=== PATIENT | female | born 1970 | race Caucasian/White ===

== ENCOUNTER 2024-03-05 13:33 | Outpatient (AMB) | payer MEDICAID, SELFPAY ==
[2024-03-05 13:53] VITALS: BP 118/83; PULSE 74; RESP 19; TEMP 36; O2SAT 95; BMI 31.1
--- NOTE | 2024-03-05 13:53 | PD.ORTHCLVIS ---
Vital signs 03/05/24 13:53 Height 1.57 m Height Method Stated Weight 77.337 kg Weight Measurement Method Standing Scale BMI 31.1 BP 118/83 Blood Pressure Source Automatic Cuff Blood Pressure Location Left Upper Arm Position Sitting Respiration 19 Pulse 74 Pulse Source Monitor Temp 96.8 F Temp Source Temporal Artery Scan Pulse Oximetry (%) 95 Oxygen Delivery Method Room Air Med/Allergies Allergies & Medications Allergies No Known Allergies Allergy (Verified 03/05/24 13:54) Medication Reconciliation atorvastatin 10 mg tablet 10 mg PO QDAY 03/05/24 [History Confirmed 03/05/24] lisinopril 10 mg tablet 10 mg PO QDAY 03/05/24 [History Confirmed 03/05/24] loratadine 10 mg tablet (Allergy Relief (loratadine)) 10 mg PO QDAY 03/05/24 [History Confirmed 03/05/24] metformin 500 mg tablet 500 mg PO QDAY 03/05/24 [History Confirmed 03/05/24] semaglutide 0.25 mg or 0.5 mg (2 mg/3 mL) subcutaneous pen injector (Ozempic) 0.25 mg subcut QWEEK 03/05/24 [History Confirmed 03/05/24] Exam Exam Patient is in no acute distress and is cooperative with the examination today. Breathing is nonlabored. In no respiratory distress. Bilateral extremities were evaluated and demonstrates sensation intact to light touch. Palpable pedal pulses are present. No significant edema is present. Bilateral hips were examined. The patient has no pain with log roll of the hips. Internal rotation to 30 degrees and external rotation to 30 degrees is painless. Negative FADIR. The left knee was examined. The left knee is in varus alignment. Range of motion from 0-115 degrees. Knee is stable to varus and valgus as well as AP translation with <5mm. Patient has a negative McMurrays. There is no pain with patellofemoral compression and no crepitus noted. The knee is tender to palpation medially. The right knee was also examined. The right knee is in varus alignment. Range of motion from 0-120 degrees. Knee is stable to varus and valgus as well as AP translation with <5mm. Patient has a negative McMurrays. There is no pain with patellofemoral compression and no crepitus noted. The knee is tender to palpation medially. X-rays demonstrate bilateral knee arthritis and joint space narrowing medially. It is of mild severity Assessment and Plan Problem List (1) Degenerative arthritis of knee, bilateral: Status: Acute Plan: Patient is a 53-year-old female with bilateral knee pain and bilateral knee arthritis. We discussed nonoperative and operative options. Her x-rays not demonstrating significant arthritis. I would thus recommend continued anti-inflammatories and bilateral knee injections. We will get authorization for bilateral knee injections at the next visit Office Procedures GNS Level of Care Nursing/Assessment Patient Status: Initial/New Patient Nursing Assessment/Reassesment: Medication Reconciliation, Update PMH in EMR and Vital Signs Coordination of Care: Complex Care and Chronic Disease 1-5, Education Complex Pt/Fam, Consent,records obtained, informed consent, 1 Ins Authorization, Results/Orders obtained and Staff clarify orders New Patient Charge New Patient Point Assignment: [id number] New Patient Point Charge: VOCATIONAL SERVICES SPECIALIST Level 3 (6079-3181) MA Intake Visit Data Collection New Patient or Established: Established Patient (seen at [facility] within 3 years) Reason for Visit:: BL OA OF KNEE Seen by Clinical Staff ONLY (RN/MA): No Vehicle Assembly Inspector Required: No PCP or OBGYN visit in last 3 months: Yes Hx Now: No Do You Feel Safe at Home: Yes Authorities Contacted: N/A Questionairres Past Medical History Past Medical History Have you ever been diagnosed with any of the following: Respiratory Problems Smoking: No Smoking Cessation Counseling: No Smoking Exposure: No Endocrine Problems Diabetes Mellitus Type 1: Yes Subjective Visit Visit for: new patient and knee Immunization / Flu Flu Vaccine in the Last 12 Months: Yes Flu Vaccine Exclusion Criteria: Already Received History of Present Illness Chief complaint: bilateral knee pain Patient is a 53-year-old female who I previously saw in my prior office. She has bilateral knee pain has been ongoing for a while. She has degenerative meniscal tear and she has been doing well with nonoperative treatment. She has had prior injections and lasted for quite a while. I saw her more than a year ago. She is currently in physical therapy. Pain Pain level (0-10): 7 Pain duration: COMES AND GOES Pain location: inside (medial) Pain quality: sharp Pain timing: night and stairs Associated signs & symptoms: stiffness (RIGHT) Ambulatory data Ambulatory device: none Treatments Improvement with previous injections: Yes Improvement with PT: Yes Improvement with NSAIDS: no Review of Systems Review of Systems: All systems negative unless otherwise noted in HPI.
== END 2024-03-05 14:15 | disposition home or self-care (01) ==
PROVIDERS: PCP Nurse Practitioner; Referring Provider Nurse Practitioner; Supervising Provider Orthopaedic Surgery Adult Reconstructive Orthopaedic Surgery; Visit Provider Orthopaedic Surgery Adult Reconstructive Orthopaedic Surgery
DX: M17.0 Bilateral primary osteoarthritis of knee (principal); M25.562 Pain in left knee; M25.561 Pain in right knee; E10.9 Type 1 diabetes mellitus without complications
CPT/HCPCS: 99203; G0463

== ENCOUNTER 2024-03-19 14:49 | Outpatient (AMB) | payer MEDICAID, SELFPAY ==
--- NOTE | 2024-03-19 14:57 | ORTHONT_ITS ---
Vital signs 03/19/24 14:59 Height 1.57 m Height Method Stated Weight 77.763 kg Weight Measurement Method Standing Scale BMI 31.5 BP 117/81 Blood Pressure Source Automatic Cuff Blood Pressure Location Left Upper Arm Position Sitting Respiration 19 Pulse 85 Pulse Source Monitor Temp 98.0 F Temp Source Temporal Artery Scan Pulse Oximetry (%) 96 Oxygen Delivery Method Room Air Med/Allergies Allergies & Medications Allergies No Known Allergies Allergy (Verified 03/19/24 15:00) Medication Reconciliation atorvastatin 10 mg tablet 10 mg PO QDAY 03/05/24 [History Confirmed 03/19/24] lisinopril 10 mg tablet 10 mg PO QDAY 03/05/24 [History Confirmed 03/19/24] loratadine 10 mg tablet (Allergy Relief (loratadine)) 10 mg PO QDAY 03/05/24 [History Confirmed 03/19/24] metformin 500 mg tablet 500 mg PO QDAY 03/05/24 [History Confirmed 03/19/24] semaglutide 0.25 mg or 0.5 mg (2 mg/3 mL) subcutaneous pen injector (Ozempic) 0.25 mg subcut QWEEK 03/05/24 [History Confirmed 03/19/24] Exam Exam Patient is in no acute distress and is cooperative with the examination today. Breathing is nonlabored. In no respiratory distress. Bilateral extremities were evaluated and demonstrates sensation intact to light touch. Palpable pedal pulses are present. No significant edema is present. Bilateral hips were examined. The patient has no pain with log roll of the hips. Internal rotation to 30 degrees and external rotation to 30 degrees is painless. Negative FADIR. The left knee was examined. The left knee is in varus alignment. Range of motion from 0-115 degrees. Knee is stable to varus and valgus as well as AP translation with <5mm. Patient has a negative McMurrays. There is no pain with patellofemoral compression and no crepitus noted. The knee is tender to palpation medially. The right knee was also examined. The right knee is in varus alignment. Range of motion from 0-120 degrees. Knee is stable to varus and valgus as well as AP translation with <5mm. Patient has a negative McMurrays. There is no pain with patellofemoral compression and no crepitus noted. The knee is tender to palpation medially. X-rays demonstrate bilateral knee arthritis and joint space narrowing medially. It is of mild severity Assessment and Plan Problem List (1) Degenerative arthritis of knee, bilateral: Status: Acute Plan: Patient is a 53-year-old female with bilateral knee pain and bilateral knee arthritis. We discussed nonoperative and operative options. Her x-rays are not demonstrating significant arthritis. I would thus recommend continued anti- inflammatories and bilateral knee injections. Plan Recommend knee cortisone injections as patient would like to proceed with conservative treatment at this time. The risks and benefits of the procedure were reviewed with the patient and patient gave verbal consent to continue with the procedure. Procedure: performed by Dr. Iraheta Using sterile technique the Bilateral knees were thoroughly prepped with alcohol, and approximately 1 cc of Kenalog 40 mg/mL and 4 cc of 1% lidocaine was injected into each knee without resistance into the medial tibial femoral joint space. The patient tolerated the procedure. Office Procedures GNS Level of Care Nursing/Assessment Patient Status: Established Patient Nursing Assessment/Reassesment: Medication Reconciliation, Update PMH in EMR and Vital Signs Coordination of Care: Complex Care and Chronic Disease 1-5, Education Complex Pt/Fam, Consent,records obtained, informed consent, Results/Orders obtained and Staff clarify orders Established Patient Charge Established Patient Point Assignment: 95 Established Patient Point Charge: EP Level 3 (80-115) MA Intake Visit Data Collection New Patient or Established: Established Patient (seen at [facility] within 3 years) Reason for Visit:: BILATERAL KNEE INJECTION Seen by Clinical Staff ONLY (RN/MA): No Special Education Director Required: No PCP or OBGYN visit in last 3 months: Yes Hx Now: No Do You Feel Safe at Home: Yes Authorities Contacted: N/A Questionairres Past Medical History Past Medical History Have you ever been diagnosed with any of the following: Respiratory Problems Smoking: No Smoking Cessation Counseling: No Smoking Exposure: No Endocrine Problems Diabetes Mellitus Type 1: Yes Subjective Visit Visit for: follow up visit, knee (BILATERAL) and injections Immunization / Flu Flu Vaccine in the Last 12 Months: No Flu Vaccine Exclusion Criteria: No Exclusion Criteria History of Present Illness Chief complaint: bilateral knee pain Patient is a 53-year-old female who I previously saw in my prior office. She has bilateral knee pain has been ongoing for a while. She has degenerative meniscal tear and she has been doing well with nonoperative treatment. She has had prior injections and they lasted for quite a while. I saw her more than a year ago. She is currently in physical therapy. Pain Pain level (0-10): 5 Pain duration: CONSTANT Pain location: inside (medial) Pain quality: sharp, dull and aching Pain timing: night, increases with activity and stairs Associated signs & symptoms: stiffness (RIGHT) Ambulatory data Ambulatory device: none Treatments Improvement with previous injections: No Improvement with PT: No Improvement with NSAIDS: no Review of Systems Review of Systems: All systems negative unless otherwise noted in HPI.
[2024-03-19 14:59] VITALS: BP 117/81; PULSE 85; RESP 19; TEMP 36.7; O2SAT 96; BMI 31.5
== END 2024-03-19 15:34 | disposition home or self-care (01) ==
PROVIDERS: PCP Nurse Practitioner; Referring Provider Nurse Practitioner; Supervising Provider Orthopaedic Surgery Adult Reconstructive Orthopaedic Surgery; Visit Provider Orthopaedic Surgery Adult Reconstructive Orthopaedic Surgery
DX: M17.0 Bilateral primary osteoarthritis of knee (principal); M25.562 Pain in left knee; M25.561 Pain in right knee; E10.9 Type 1 diabetes mellitus without complications
CPT/HCPCS: 20610; 99213; J3301; J3490; G0463

== ENCOUNTER 2024-07-16 15:16 | Outpatient (AMB) | payer MEDICAID, SELFPAY ==
--- NOTE | 2024-07-16 15:27 | ORTHONT_ITS ---
Med/Allergies Allergies & Medications Allergies No Known Allergies Allergy (Verified 03/19/24 15:00) Exam Exam Patient is in no acute distress and is cooperative with the examination today. Breathing is nonlabored. In no respiratory distress. Bilateral extremities were evaluated and demonstrates sensation intact to light touch. Palpable pedal pulses are present. No significant edema is present. Bilateral hips were examined. The patient has no pain with log roll of the hips. Internal rotation to 30 degrees and external rotation to 30 degrees is painless. Negative FADIR. The left knee was examined. The left knee is in varus alignment. Range of motion from 0-115 degrees. Knee is stable to varus and valgus as well as AP translation with <5mm. Patient has a negative McMurrays. There is no pain with patellofemoral compression and no crepitus noted. The knee is tender to palpation medially. The right knee was also examined. The right knee is in varus alignment. Range of motion from 0-120 degrees. Knee is stable to varus and valgus as well as AP t ranslation with <5mm. Patient has a negative McMurrays. There is no pain with patellofemoral compression and no crepitus noted. The knee is tender to palpation medially. X-rays demonstrate bilateral knee arthritis and joint space narrowing medially. It is of mild severity Assessment and Plan Problem List (1) Degenerative arthritis of knee, bilateral: Status: Acute Plan: Patient is a 53-year-old female with bilateral knee pain and bilateral knee arthritis. We discussed nonoperative and operative options. Her x-rays are not demonstrating significant arthritis. She would like a right knee injections today Plan Recommend knee cortisone injection as patient would like to proceed with conservative treatment at this time. The risks and benefits of the procedure were reviewed with the patient and patient gave verbal consent to continue with the procedure. Procedure: performed by Dr. Iraheta Using sterile technique the Right knee was thoroughly prepped with alcohol, and approximately 1 cc of Kenalog 40 mg/mL and 4 cc of 1% lidocaine was injected without resistance into the medial tibial femoral joint space. The patient tolerated the procedure. Questionairres Past Medical History Past Medical History Have you ever been diagnosed with any of the following: Respiratory Problems Smoking: No Smoking Cessation Counseling: No Smoking Exposure: No Endocrine Problems Diabetes Mellitus Type 1: Yes Subjective Visit Visit for: follow up visit, knee (BILATERAL) and injections Immunization / Flu Flu Vaccine in the Last 12 Months: No Flu Vaccine Exclusion Criteria: No Exclusion Criteria History of Present Illness Chief complaint: bilateral knee pain Patient is a 53-year-old female who I previously saw in my prior office. She has bilateral knee pain has been ongoing for a while. She has degenerative meniscal tear and she has been doing well with nonoperative treatment. She has had prior injections and they lasted for quite a while. She would like a new injection today Pain Pain level (0-10): 5 Pain duration: CONSTANT Pain location: inside (medial) Pain quality: sharp, dull and aching Pain timing: night, increases with activity and stairs Associated signs & symptoms: stiffness (RIGHT) Ambulatory data Ambulatory device: none Treatments Improvement with previous injections: No Improvement with PT: No Improvement with NSAIDS: no Review of Systems Review of Systems: All systems negative unless otherwise noted in HPI.
[2024-07-16 15:31] VITALS: BP 118/78; PULSE 78; RESP 18; TEMP 36.6
[2024-07-16 15:47] VITALS: BP 118/78; PULSE 78; RESP 18; TEMP 36.6
--- NOTE | 2024-07-16 15:47 | PD.ORTHCLVIS ---
Vital signs 07/16/24 15:31 07/16/24 15:47 Height 1.57 m Height Method Stated Weight 78.29 kg Weight Measurement Method Standing Scale BP 118/78 118/78 Blood Pressure Source Automatic Cuff Blood Pressure Location Left Upper Arm Position Sitting Respiration 18 18 Pulse 78 78 Pulse Source Monitor Temp 97.8 F 97.8 F Temp Source Temporal Artery Scan Med/Allergies Allergies & Medications Allergies No Known Allergies Allergy (Verified 07/16/24 15:49) Medication Reconciliation atorvastatin 10 mg tablet 10 mg PO QDAY 03/05/24 [History Confirmed 07/16/24] lisinopril 10 mg tablet 10 mg PO QDAY 03/05/24 [History Confirmed 07/16/24] loratadine 10 mg tablet (Allergy Relief (loratadine)) 10 mg PO QDAY 03/05/24 [History Confirmed 07/16/24] metformin 500 mg tablet 500 mg PO QDAY 03/05/24 [History Confirmed 07/16/24] semaglutide 0.25 mg or 0.5 mg (2 mg/3 mL) subcutaneous pen injector (Ozempic) 0.25 mg subcut QWEEK 03/05/24 [History Confirmed 07/16/24] Assessment and Plan Problem List (1) Degenerative arthritis of knee, bilateral: Status: Acute Office Procedures GNS Level of Care Nursing/Assessment Patient Status: Established Patient Nursing Assessment/Reassesment: Medication Reconciliation, Update PMH in EMR and Vital Signs Coordination of Care: Complex Care and Chronic Disease 1-5, Education Complex Pt/Fam, Consent,records obtained, informed consent, Results/Orders obtained and Staff clarify orders Established Patient Charge Established Patient Point Assignment: 95 Established Patient Point Charge: EP Level 3 (80-115) Surgical Proc/IM SQ injection Major Surgical Procedure: Yes (BILATERAL KNEE INJECTION) Medication Given Medication Given Medication Given: Yes Documented Dose Given: 8 Route: Infiitration Medication Given Medication Given Medication Given: Yes Documented Dose Given: 4 Route: Infiitration Office Meds Xylocaine 10 mg/mL (1 %) injection solution Performing Provider: Brett Iraheta MD Performing Location: [facility] Administered by: Brett Iraheta MD on 07/16/24 15:47 Dose Route Admin Location Dispensed Lot Number Expiration Date [facility] [employer] Super[employer] 40 mL Infiltration 40 mL [id number] 11/03/27 76512-290-15 [employer] triamcinolone acetonide 40 mg/mL suspension for injection Performing Provider: Brett Iraheta MD Performing Location: [facility] Administered by: Brett Iraheta MD on 07/16/24 15:47 Dose Route Admin Location Dispensed Lot Number Expiration Date [employer] 80 mg intra-articular 2 mL [id number] 03/04/26 3817-6893-14 [employer] Questionairres Past Medical History Past Medical History Have you ever been diagnosed with any of the following: Respiratory Problems Smoking: No Smoking Cessation Counseling: No Smoking Exposure: No Endocrine Problems Diabetes Mellitus Type 1: Yes Subjective Immunization / Flu Flu Vaccine in the Last 12 Months: Yes Flu Vaccine Exclusion Criteria: Allergy to Eggs Review of Systems Review of Systems: All systems negative unless otherwise noted in HPI.
== END 2024-07-16 15:39 | disposition home or self-care (01) ==
PROVIDERS: PCP Nurse Practitioner; Referring Provider Nurse Practitioner; Supervising Provider Orthopaedic Surgery Adult Reconstructive Orthopaedic Surgery; Visit Provider Orthopaedic Surgery Adult Reconstructive Orthopaedic Surgery
DX: M17.0 Bilateral primary osteoarthritis of knee (principal)
CPT/HCPCS: 20610; 99213; J3301; J3490; G0463

== ENCOUNTER 2024-10-17 14:18 | Outpatient (AMB) | payer MEDICAID, SELFPAY ==
[2024-10-17 14:35] VITALS: BP 116/72; PULSE 89; RESP 18; TEMP 36.7; O2SAT 96; BMI 34.6
--- NOTE | 2024-10-17 14:35 | ORTHONT_ITS ---
Vital signs 10/17/24 14:35 Height 1.57 m Height Method Stated Weight 85.389 kg Weight Measurement Method Standing Scale BMI 34.6 BP 116/72 Blood Pressure Source Automatic Cuff Blood Pressure Location Left Upper Arm Position Sitting Respiration 18 Pulse 89 Pulse Source Monitor Temp 98.1 F Temp Source Temporal Artery Scan Pulse Oximetry (%) 96 Oxygen Delivery Method Room Air Med/Allergies Allergies & Medications Allergies No Known Allergies Allergy (Verified 10/17/24 14:38) Medication Reconciliation atorvastatin 10 mg tablet 10 mg PO QDAY 03/05/24 [History Confirmed 10/17/24] lisinopril 10 mg tablet 10 mg PO QDAY 03/05/24 [History Confirmed 10/17/24] loratadine 10 mg tablet (Allergy Relief (loratadine)) 10 mg PO QDAY 03/05/24 [History Confirmed 10/17/24] metformin 500 mg tablet 500 mg PO QDAY 03/05/24 [History Confirmed 10/17/24] semaglutide 0.25 mg or 0.5 mg (2 mg/3 mL) subcutaneous pen injector (Ozempic) 0.25 mg subcut QWEEK 03/05/24 [History Confirmed 10/17/24] Exam Exam Patient is in no acute distress and is cooperative with the examination today. Breathing is nonlabored. In no respiratory distress. Bilateral extremities were evaluated and demonstrates sensation intact to light touch. Palpable pedal pulses are present. No significant edema is present. Bilateral hips were examined. The patient has no pain with log roll of the hips. Internal rotation to 30 degrees and external rotation to 30 degrees is painless. Negative FADIR. The left knee was examined. The left knee is in varus alignment. Range of motion from 0-115 degrees. Knee is stable to varus and valgus as well as AP translation with <5mm. Patient has a negative McMurrays. There is no pain with patellofemoral compression and no crepitus noted. The knee is tender to palpation medially. The right knee was also examined. The right knee is in varus alignment. Range of motion from 0-120 degrees. Knee is stable to varus and valgus as well as AP translation with <5mm. Patient has a negative McMurrays. There is no pain with patellofemoral compression and no crepitus noted. The knee is tender to palpation medially. X-rays demonstrate bilateral knee arthritis and joint space narrowing medially. It is of mild severity Assessment and Plan Problem List (1) Degenerative arthritis of knee, bilateral: Status: Acute Plan: Patient is a 53-year-old female with bilateral knee pain and bilateral knee arthritis. We discussed nonoperative and operative options. Her x-rays are not demonstrating significant arthritis. She would like a right knee injections today Plan Recommend knee cortisone injection as patient would like to proceed with conservative treatment at this time. The risks and benefits of the procedure were reviewed with the patient and patient gave verbal consent to continue with the procedure. Procedure: performed by Dr. Iraheta Using sterile technique the left knee was thoroughly prepped with alcohol, and approximately 1 cc of Depo-Medrol 80mg/mL and 4 cc of 0.2% ropivacaine was injected without resistance into the medial tibial femoral joint space. The patient tolerated the procedure. Recommend knee cortisone injection as patient would like to proceed with conservative treatment at this time. The risks and benefits of the procedure were reviewed with the patient and patient gave verbal consent to continue with the procedure. Procedure: performed by Dr. Iraheta Using sterile technique the Right knee was thoroughly prepped with alcohol, and approximately 1 cc of Depo-Medrol 80mg/mL and 4 cc of 0.2% ropivacaine was injected without resistance into the medial tibial femoral joint space. The patient tolerated the procedure. Office Procedures GNS Level of Care Nursing/Assessment Patient Status: Established Patient Nursing Assessment/Reassesment: Medication Reconciliation, Update PMH in EMR and Vital Signs Coordination of Care: Complex Care and Chronic Disease 1-5, Education Complex Pt/Fam, Consent,records obtained, informed consent, Results/Orders obtained and Staff clarify orders Established Patient Charge Established Patient Point Assignment: 95 Established Patient Point Charge: EP Level 3 (80-115) Surgical Proc/IM SQ injection Major Surgical Procedure: Yes (BILATERAL KNEE INJECTION ) Medication Given Medication Given Medication Given: Yes Documented Dose Given: 1 Route: Infiitration Medication Given Medication Given Medication Given: Yes Documented Dose Given: 1 Route: Infiitration Medication Given Medication Given Medication Given: Yes Documented Dose Given: 4 Route: Infiitration Medication Given Medication Given Medication Given: Yes Documented Dose Given: 4 Route: Infiitration Office Meds methylprednisolone acetate 80 mg/mL suspension for injection Performing Provider: Brett Iraheta MD Performing Location: [facility] Administered by: Brett Iraheta MD on 10/17/24 14:55 Dose Route Admin Location Dispensed Lot Number Expiration Date ND [employer]ester 80 mg intra-articular 1 mL [id number] 08/02/26 [address]-7 [employer] methylprednisolone acetate 80 mg/mL suspension for injection Performing Provider: Brett Iraheta MD Performing Location: [facility] Administered by: Brett Iraheta MD on 10/17/24 14:55 Dose Route Admin Location Dispensed Lot Number Expiration Date ND Drum Tester 80 mg intra-articular 1 mL [id number] 08/02/26 [address]-4 [employer] ropivacaine (PF) 2 mg/mL (0.2 %) injection solution Performing Provider: Brett Iraheta MD Performing Location: [facility] Administered by: Brett Iraheta MD on 10/17/24 14:55 Dose Route Admin Location Dispensed Lot Number Expiration Date ND Drum Tester 20 mL Infiltration 20 mL [id number] 01/02/26 53159-750-65 [facility] ropivacaine (PF) 2 mg/mL (0.2 %) injection solution Performing Provider: Brett Iraheta MD Performing Location: [facility] Administered by: Brett Iraheta MD on 10/17/24 15:04 Dose Route Admin Location Dispensed Lot Number Expiration Date [facility] Drum Tester 20 mL Infiltration 20 mL [id number] 01/02/26 33193-659-66 [facility] [place] Intake Visit Data Collection New Patient or Established: Established Patient (seen at [facility] within 3 years) Reason for Visit:: 3MTH KNEE INJ F/U Seen by Clinical Staff ONLY (RN/MA): No PCP or OBGYN visit in last 3 months: Yes Hx Now: No Do You Feel Safe at Home: Yes Authorities Contacted: N/A Questionairres Past Medical History Past Medical History Have you ever been diagnosed with any of the following: Neurological Problems Cerebrovascular Accident (CVA): No Transient Ischemic Attacks (TIA): No Dementia: No Alzheimer's Disease: No Parkinson's Disease: No Brain Tumor: No Meningitis: No Seizures: No Epilepsy: No Multiple Sclerosis: No Cerebral Palsy: No Amyotrophic Lateral Sclerosis (ALS/Darlene Gehrig's): No Guillain-[place] Syndrome: No Spina Bifida: No Paralysis: No Peripheral Neuropathy: No Anaya's Palsy: No Subdural Hematoma: No Migraine: No Head Trauma: No Spinal Cord Injury: No Traumatic Brain Injury: No Cardiology Problems Myocardial Infarction: No Cardiac Arrhythmia: No Atrial Fibrillation: No Angina: No Heart Murmur: No Coronary Artery Disease: No Atherosclerotic Heart Disease: No Peripheral Vascular Disease: No Hypercholesterolemia: No Aneurysm: No Congestive Heart Failure: No Congenital Heart Disease: No Valvular Heart Disease: No Rheumatic Fever: No Cardiomyopathy: No Edema: No Pericarditis: No Cellulitis: No Deep Vein Thrombosis: No Hypertension: No Hypotension: No Varicose Veins: No Respiratory Problems Chronic Obstructive Pulmonary Disease (COPD): No Asthma: No Bronchitis: No Emphysema: No Pneumonia: No Pulmonary Fibrosis: No Tuberculosis: No Pulmonary Embolism: No Pulmonary Edema: No Sleep Apnea: No CPAP Dependent: No Respiratory Aspiration: No Dyspnea: No Orthopnea: No Hx Cough: No Cough: No Wheezing: No Chest Deformities: No Smoking: No Smoking Cessation Counseling: No Smoking Exposure: No Tobacco Use: No Clubbing: No Exposure to Respiratory Irritants: No Intubation: No Stomache/Intestinal Problems Liver Cancer: No Hepatitis: No Cirrhosis: No Pancreatic Cancer: No Pancreatitis: No Celiac Disease: No Gall Bladder Disease: No Gastrointestinal Bleed: No Esophageal Varices: No Gutierrez's Esophagus: No Colitis: No Ulcerative Colitis: No Diverticulitis: No Diverticulosis: No Ulcer: No Colorectal Cancer: No Irritable Bowel: No Crohn's Disease: No Obstructive Bowel: No Hiatal Hernia: No Hemorrhoids: No Gastroesophageal Reflux Disease: No Polyps: No Obesity: No Genital/Urinary Problems Chronic Kidney Disease: No Renal Disease: No Kidney Stones: No Polycystic Kidney Disease: No Neurogenic Bladder: No Inguinal Hernia: No Dialysis: No Reproductive Problems Breast Cancer: No Endometriosis: No Fibroids: No Genital Herpes: No Gonorrhea: No Pelvic Inflammatory Disease: No Polycystic Ovarian Syndrome: No Previous Pregnancies: No Syphilis: No Uterine Prolapse: No Musculoskeletal Problems Muscular Dystrophy: No Myasthenia Gravis: No Marfan's Syndrome: No Bone Cancer: No Arthritis: No Rheumatoid Arthritis: No Osteoporosis: No Degenerative Disk Disease: No Gout: No Scoliosis: No Carpal Tunnel Syndrome: No Fibromyalgia: No Fractures: No Degenerative Joint Disease: No Osteomyelitis: No Poliovirus: No Head,Eye,Nose,Throat Problems Cataracts: No Glaucoma: No Blind: No Retinal Detachment: No Macular Degeneration: No Chronic Ear Infections: No Deafness: No Eye Prosthesis: No Endocrine Problems Diabetes Mellitus Type 1: Yes Diabetes Mellitus Type 2: No Hypoglycemia: No [place]'s Syndrome: No [place]'s Disease: No Hyperthyroidism: No Hypothyroidism: No Thyroid Cancer: No Parathyroid Disease: No Pituitary Disease: No Systemic Lupus Erythematosus: No Syndrome of Inappropriate Antidiuretic Hormone: No Adrenal Disease: No Graves' Disease: No Blood Problems Anemia: No Leukemia: No Hemophilia: No Thalassemia: No Sickle Cell Disease: No Clotting Problems: No Psychologic Problems Schizophrenia: No Recreational Drug Use: No Bipolar Disorder: No Depression: No Anxiety: No Behavior Problems: No Self-Mutilation: No Attention Deficit Disorder: No Attention Deficit Hyperactivity Disorder: No Depression: No Post Traumatic Stress Disorder: No Eating Disorder: No Other Problems Hospitalization: No Autoimmune Disease: No Down Syndrome: No Autism: No Developmental Delay: No Cosmetic Surgery: No Shingles: No Falls: No Blood Transfusions: No Blood Transfusion Reaction: No Anesthesia Reactions: No Organ Transplant: No Chemotherapy: No Radiation Therapy: No Hyperbaric Therapy: No MRSA: No VRSA: No Vancomycin-Resistant Enterococci: No Human Immunodeficiency Virus (HIV): No Chicken Pox: No Measles: No Mumps: No Rubella ([place] Measles): No Pertussis: No Klebsiella Pneumoniae Carbapenemase Producing Bacteria: No Clostridium Difficile: No Hepatitis A: No Hepatitis B: No Hepatitis C: No Communicable Disease: No Cancer: No Cervical Cancer: No Lung Cancer: No Ovarian Cancer: No Surgical History Angioplasty: No Appendectomy: No Bariatric Surgery: No Breast Surgery: No Cancer Surgery: No Carotid Endarterectomy: No Cholecystectomy: No Colectomy: No Colostomy: No Coronary Artery Bypass Graft: No Valve Replacement: No Herniorrhaphy: No Total Hip Replacement: No Total Knee Replacement: No Hysterectomy: No Pacemaker: No Sinus Surgery: No Splenectomy: No TAHBSO-Total Abdominal Hysterectomy: No Thyroidectomy: No Ureter Stent: No Subjective Visit Visit for: follow up visit, knee and injections Immunization / Flu Flu Vaccine in the Last 12 Months: Yes Flu Vaccine Exclusion Criteria: Allergy to Eggs History of Present Illness Chief complaint: bilateral knee pain Patient is a 53-year-old female who I previously saw in my prior office. She has bilateral knee pain has been ongoing for a while. She has degenerative meniscal tear and she has been doing well with nonoperative treatment. She has had prior injections and they lasted for quite a while. She would like a new injection today Pain Pain level (0-10): 4 Pain duration: CONSTANT Pain location: anterior Pain quality: dull Pain timing: increases with activity Associated signs & symptoms: none Ambulatory data Ambulatory device: none Treatments Improvement with previous injections: No Improvement with PT: No Improvement with NSAIDS: no Review of Systems Review of Systems: All systems negative unless otherwise noted in HPI.
== END 2024-10-17 15:04 | disposition home or self-care (01) ==
LOC: HODSRG 14:18
PROVIDERS: PCP Nurse Practitioner; Referring Provider Nurse Practitioner; Supervising Provider Orthopaedic Surgery Adult Reconstructive Orthopaedic Surgery; Visit Provider Orthopaedic Surgery Adult Reconstructive Orthopaedic Surgery
DX: M17.0 Bilateral primary osteoarthritis of knee (principal); M25.562 Pain in left knee; M25.561 Pain in right knee; S83.209D Unspecified tear of unspecified meniscus, current injury, unspecified knee, subsequent encounter; E10.9 Type 1 diabetes mellitus without complications
CPT/HCPCS: 20610; 99213; J1010; J2795; G0463

== ENCOUNTER 2025-01-03 10:49 | Outpatient (AMB) | payer MEDICAID, SELFPAY ==
--- NOTE | 2025-01-03 11:09 | ORTHONT_ITS ---
Vital signs 01/03/25 11:15 Height 1.57 m Height Method Stated Weight 86.438 kg Weight Measurement Method Standing Scale BMI 35.0 BP 124/80 Blood Pressure Source Automatic Cuff Blood Pressure Location Left Upper Arm Position Sitting Respiration 18 Pulse 67 Pulse Source Monitor Temp 97.5 F Temp Source Temporal Artery Scan Pulse Oximetry (%) 96 Oxygen Delivery Method Room Air Med/Allergies Allergies & Medications Allergies No Known Allergies Allergy (Verified 01/03/25 11:15) Medication Reconciliation atorvastatin 10 mg tablet 10 mg PO QDAY 03/05/24 [History Confirmed 01/03/25] lisinopril 10 mg tablet 10 mg PO QDAY 03/05/24 [History Confirmed 01/03/25] loratadine 10 mg tablet (Allergy Relief (loratadine)) 10 mg PO QDAY 03/05/24 [History Confirmed 01/03/25] metformin 500 mg tablet 500 mg PO QDAY 03/05/24 [History Confirmed 01/03/25] semaglutide 0.25 mg or 0.5 mg (2 mg/3 mL) subcutaneous pen injector (Ozempic) 0.25 mg subcut QWEEK 03/05/24 [History Confirmed 01/03/25] Exam Exam Patient is in no acute distress and is cooperative with the examination today. Breathing is nonlabored. In no respiratory distress. Bilateral extremities were evaluated and demonstrates sensation intact to light touch. Palpable pedal pulses are present. No significant edema is present. Bilateral hips were examined. The patient has no pain with log roll of the hips. Internal rotation to 30 degrees and external rotation to 30 degrees is painless. Negative FADIR. The left knee was examined. The left knee is in varus alignment. Range of motion from 0-115 degrees. Knee is stable to varus and valgus as well as AP translation with <5mm. Patient has a negative McMurrays. There is no pain with patellofemoral compression and no crepitus noted. The knee is tender to palpation medially. The right knee was also examined. The right knee is in varus alignment. Range of motion from 0-120 degrees. Knee is stable to varus and valgus as well as AP translation with <5mm. Patient has a negative McMurrays. There is no pain with patellofemoral compression and no crepitus noted. The knee is tender to palpation medially. X-rays demonstrate bilateral knee arthritis and joint space narrowing medially. It is of mild severity Assessment and Plan Problem List (1) Degenerative arthritis of knee, bilateral: Status: Acute Plan: Patient is a 53-year-old female with bilateral knee pain and bilateral knee arthritis. We discussed nonoperative and operative options. Her x-rays are not demonstrating significant arthritis. She would like new knee injections today Plan Recommend knee cortisone injection as patient would like to proceed with conservative treatment at this time. The risks and benefits of the procedure were reviewed with the patient and patient gave verbal consent to continue with the procedure. Procedure: performed by Dr. Iraheta Using sterile technique the left knee was thoroughly prepped with alcohol, and approximately 1 cc of Depo-Medrol 80mg/mL and 4 cc of 0.2% ropivacaine was injected without resistance into the medial tibial femoral joint space. The patient tolerated the procedure. Recommend knee cortisone injection as patient would like to proceed with conservative treatment at this time. The risks and benefits of the procedure were reviewed with the patient and patient gave verbal consent to continue with the procedure. Procedure: performed by Dr. Iraheta Using sterile technique the Right knee was thoroughly prepped with alcohol, and approximately 1 cc of Depo-Medrol 80mg/mL and 4 cc of 0.2% ropivacaine was injected without resistance into the medial tibial femoral joint space. The patient tolerated the procedure. Office Procedures GNS Level of Care Nursing/Assessment Patient Status: Established Patient Nursing Assessment/Reassesment: Medication Reconciliation, Update PMH in EMR and Vital Signs Coordination of Care: Complex Care and Chronic Disease 1-5, Education Complex Pt/Fam, Consent,records obtained, informed consent, Results/Orders obtained and Staff clarify orders Established Patient Charge Established Patient Point Assignment: 95 Established Patient Point Charge: EP Level 3 (80-115) Surgical Proc/IM SQ injection Minor Surgical Procedure: Yes (KNEE INJECTION) MA Intake Visit Data Collection New Patient or Established: Established Patient (seen at [facility] within 3 years) Reason for Visit:: 3MTH BL KNEE INJ Seen by Clinical Staff ONLY (RN/MA): No PCP or OBGYN visit in last 3 months: Yes Hx Now: No Do You Feel Safe at Home: Yes Authorities Contacted: N/A Questionairres Past Medical History Past Medical History Have you ever been diagnosed with any of the following: Neurological Problems Cerebrovascular Accident (CVA): No Transient Ischemic Attacks (TIA): No Dementia: No Alzheimer's Disease: No Parkinson's Disease: No Brain Tumor: No Meningitis: No Seizures: No Epilepsy: No Multiple Sclerosis: No Cerebral Palsy: No Amyotrophic Lateral Sclerosis (ALS/Darlene Gehrig's): No Guillain-[place] Syndrome: No Spina Bifida: No Paralysis: No Peripheral Neuropathy: No Anaya's Palsy: No Subdural Hematoma: No Migraine: No Head Trauma: No Spinal Cord Injury: No Traumatic Brain Injury: No Cardiology Problems Myocardial Infarction: No Cardiac Arrhythmia: No Atrial Fibrillation: No Angina: No Heart Murmur: No Coronary Artery Disease: No Atherosclerotic Heart Disease: No Peripheral Vascular Disease: No Hypercholesterolemia: No Aneurysm: No Congestive Heart Failure: No Congenital Heart Disease: No Valvular Heart Disease: No Rheumatic Fever: No Cardiomyopathy: No Edema: No Pericarditis: No Cellulitis: No Deep Vein Thrombosis: No Hypertension: No Hypotension: No Varicose Veins: No Respiratory Problems Chronic Obstructive Pulmonary Disease (COPD): No Asthma: No Bronchitis: No Emphysema: No Pneumonia: No Pulmonary Fibrosis: No Tuberculosis: No Pulmonary Embolism: No Pulmonary Edema: No Sleep Apnea: No CPAP Dependent: No Respiratory Aspiration: No Dyspnea: No Orthopnea: No Hx Cough: No Cough: No Wheezing: No Chest Deformities: No Smoking: No Smoking Cessation Counseling: No Smoking Exposure: No Tobacco Use: No Clubbing: No Exposure to Respiratory Irritants: No Intubation: No Stomache/Intestinal Problems Liver Cancer: No Hepatitis: No Cirrhosis: No Pancreatic Cancer: No Pancreatitis: No Celiac Disease: No Gall Bladder Disease: No Gastrointestinal Bleed: No Esophageal Varices: No Gutierrez's Esophagus: No Colitis: No Ulcerative Colitis: No Diverticulitis: No Diverticulosis: No Ulcer: No Colorectal Cancer: No Irritable Bowel: No Crohn's Disease: No Obstructive Bowel: No Hiatal Hernia: No Hemorrhoids: No Gastroesophageal Reflux Disease: No Obesity: No Genital/Urinary Problems Renal Disease: No Kidney Stones: No Polycystic Kidney Disease: No Neurogenic Bladder: No Inguinal Hernia: No Dialysis: No Reproductive Problems Breast Cancer: No Endometriosis: No Fibroids: No Genital Herpes: No Gonorrhea: No Pelvic Inflammatory Disease: No Polycystic Ovarian Syndrome: No Previous Pregnancies: No Syphilis: No Uterine Prolapse: No Musculoskeletal Problems Muscular Dystrophy: No Myasthenia Gravis: No Marfan's Syndrome: No Bone Cancer: No Arthritis: No Rheumatoid Arthritis: No Osteoporosis: No Degenerative Disk Disease: No Gout: No Scoliosis: No Carpal Tunnel Syndrome: No Fibromyalgia: No Fractures: No Degenerative Joint Disease: No Osteomyelitis: No Poliovirus: No Head,Eye,Nose,Throat Problems Cataracts: No Glaucoma: No Blind: No Retinal Detachment: No Macular Degeneration: No Chronic Ear Infections: No Deafness: No Eye Prosthesis: No Endocrine Problems Diabetes Mellitus Type 1: Yes Diabetes Mellitus Type 2: No Hypoglycemia: No [place]'s Syndrome: No [place]'s Disease: No Hyperthyroidism: No Hypothyroidism: No Thyroid Cancer: No Parathyroid Disease: No Pituitary Disease: No Systemic Lupus Erythematosus: No Syndrome of Inappropriate Antidiuretic Hormone: No Adrenal Disease: No Graves' Disease: No Blood Problems Anemia: No Leukemia: No Hemophilia: No Thalassemia: No Sickle Cell Disease: No Clotting Problems: No Psychologic Problems Schizophrenia: No Recreational Drug Use: No Bipolar Disorder: No Depression: No Anxiety: No Behavior Problems: No Self-Mutilation: No Attention Deficit Disorder: No Attention Deficit Hyperactivity Disorder: No Depression: No Post Traumatic Stress Disorder: No Eating Disorder: No Other Problems Hospitalization: No Down Syndrome: No Autism: No Developmental Delay: No Cosmetic Surgery: No Shingles: No Falls: No Blood Transfusions: No Blood Transfusion Reaction: No Anesthesia Reactions: No Organ Transplant: No Chemotherapy: No Radiation Therapy: No Hyperbaric Therapy: No MRSA: No VRSA: No Vancomycin-Resistant Enterococci: No Human Immunodeficiency Virus (HIV): No Chicken Pox: No Measles: No Mumps: No Rubella ([place] Measles): No Pertussis: No Klebsiella Pneumoniae Carbapenemase Producing Bacteria: No Clostridium Difficile: No Hepatitis A: No Hepatitis B: No Hepatitis C: No Communicable Disease: No Cancer: No Cervical Cancer: No Lung Cancer: No Ovarian Cancer: No Surgical History Angioplasty: No Appendectomy: No Bariatric Surgery: No Breast Surgery: No Cancer Surgery: No Carotid Endarterectomy: No Cholecystectomy: No Colectomy: No Colostomy: No Coronary Artery Bypass Graft: No Valve Replacement: No Herniorrhaphy: No Total Hip Replacement: No Total Knee Replacement: No Hysterectomy: No Pacemaker: No Sinus Surgery: No Splenectomy: No TAHBSO-Total Abdominal Hysterectomy: No Thyroidectomy: No Ureter Stent: No Subjective Visit Visit for: follow up visit, knee and injections Immunization / Flu Flu Vaccine in the Last 12 Months: Yes Flu Vaccine Exclusion Criteria: Allergy to Eggs History of Present Illness Chief complaint: bilateral knee pain Patient is a 53-year-old female who I previously saw in my prior office. She has bilateral knee pain has been ongoing for a while. She has degenerative meniscal tear and she has been doing well with nonoperative treatment. She has had prior injections and they lasted for quite a while. She would like a new injection today Pain Pain level (0-10): 4 Pain duration: CONSTANT Pain location: anterior Pain quality: dull Pain timing: increases with activity Associated signs & symptoms: none Ambulatory data Ambulatory device: none Treatments Improvement with previous injections: No Improvement with PT: No Improvement with NSAIDS: no Review of Systems Review of Systems: All systems negative unless otherwise noted in HPI.
[2025-01-03 11:15] VITALS: BP 124/80; PULSE 67; RESP 18; TEMP 36.4; O2SAT 96; BMI 35.0
== END 2025-01-03 11:23 | disposition home or self-care (01) ==
LOC: HODSRG 10:49
PROVIDERS: PCP Nurse Practitioner; Referring Provider Nurse Practitioner; Supervising Provider Orthopaedic Surgery Adult Reconstructive Orthopaedic Surgery; Visit Provider Orthopaedic Surgery Adult Reconstructive Orthopaedic Surgery
DX: M25.562 Pain in left knee (principal); M25.561 Pain in right knee; S83.209D Unspecified tear of unspecified meniscus, current injury, unspecified knee, subsequent encounter; X58.XXXD Exposure to other specified factors, subsequent encounter; M17.0 Bilateral primary osteoarthritis of knee
CPT/HCPCS: 20610; 99213; J1010; J2795; G0463